=== PATIENT | male | born 1935 | race Caucasian/White ===

== ENCOUNTER → 2022-01-16 | Outpatient (CLI) | payer MEDICARE | END | disposition home or self-care (01) | LOC: RAH 15:03 | PROVIDERS: ATTEND Nurse Practitioner Adult Health | DX: E11.9 Type 2 diabetes mellitus without complications (principal); I25.10 Atherosclerotic heart disease of native coronary artery without angina pectoris | CPT/HCPCS: 93922 ==

== ENCOUNTER 2024-02-08 17:27 | Inpatient (IN) | payer MEDICARE ==
[~2024-02-08] VITALS: Ht 182.9 cm; Wt 80.8 kg
[~2024-02-08 17:27] MED LIST: ATOR20TA65 PO; CLOP-31 PO; FURO40TA7 PO; INSU300I SQ; LATA2.5D14 OP; LEVO125C4 PO; LOSA50TA64 PO; METO-408 PO; NITR0.4T50 SL; REPA2TAB8 PO; SITA1TBM4 PO; WARF4TAB72 PO
[2024-02-08] MEDS ORDERED: acetaMINOPHEN 500 MG TABLET PO PRN (18:30)
[2024-02-08 18:56] LABS: BASOPHILS # (AUTO) 0.04 K/uL (0.00-0.20); BASOPHILS % (AUTO) 0.6 % (0.0-5.0); EOSINOPHILS # (AUTO) 0.02 K/uL (0.00-0.70); EOSINOPHILS % (AUTO) 0.3 % (0.0-8.0); HEMATOCRIT 30.1 % (42-54); IMMATURE GRANULOCYTE ABSOLUTE 0.05 K/uL (0-1); LYMPHOCYTES # (AUTO) 0.9 K/uL (1.0-4.8); LYMPHOCYTES % (AUTO) 12.6 % (21.0-51.0); MEAN CORPUSCULAR HGB CONC 32.9 g/dL (32.0-36.0); MEAN CORPUSCULAR VOLUME 94.4 fL (79-99); MONOCYTES # (AUTO) 1.2 K/uL (0.1-1.0); MONOCYTES % (AUTO) 16.6 % (3.0-13.0); NEUTROPHILS % (AUTO) 69.2 % (40.0-77.0); PLATELET COUNT (AUTO) 206 K/uL (130-400); RED BLOOD CELL COUNT(AUTO) 3.19 MIL/uL (4.50-6.20); RED CELL DISTRIBUTION WIDTH 14.9 % (11.0-15.5); WHITE BLOOD COUNT (AUTO) 7.3 K/uL (4.8-10.8)
[2024-02-08] MEDS ORDERED: NITROGLYCERIN 0.4 MG SL TAB SL PRN (19:00)
[2024-02-08 19:09] LABS: CREATININE 1.4 mg/dL (0.5-1.3); POTASSIUM 3.4 mmol/L (3.5-5.1)
[2024-02-08 19:17] LABS: HEMOGLOBIN A1C 8.6 % (4.0-6.0)
[2024-02-08 19:21] LABS: ALBUMIN 3.4 g/dL (3.5-5.0); BILIRUBIN,TOTAL 1.2 mg/dL (0.2-1.0); THYROID STIMULATING HORMONE 2.31 uIU/mL (0.36-3.74); TOTAL PROTEIN, SERUM 6.8 g/dL (6.0-8.3)
[2024-02-08] MEDS ORDERED: ALBUTEROL 0.083% 2.5 MG/3 ML INH IH PRN (19:30)
[2024-02-08] MEDS: ASPIRIN 81MG CHEW TAB PO ONE (19:33)
[2024-02-08] MEDS: CLOPIDOGREL 75MG TAB PO ONE (19:33)
[2024-02-08 19:34] LABS: B-TYPE NATRIURETIC PEPTIDE 2600 pg/mL (0-100)
[2024-02-08] MEDS ORDERED: POTASSIUM CHLORIDE 10% ELIXIR 20 MEQ/15 ML UDCUP PO PRN (20:30)
[2024-02-08] MEDS ORDERED: POTASSIUM CHLORIDE 20MEQ/100ML 100 ML IV PRN (20:30)
[2024-02-08] MEDS: INSULIN humuLIN R 100 UNIT/ML 3ML SQ SCH (21:10)
[2024-02-08] MEDS: RANOLAZINE 500 MG TAB.SR.12H PO SCH (21:10)
[2024-02-08] MEDS: APIXaban 5 MG TABLET PO SCH (21:11)
[2024-02-08] MEDS: furoSEMIDE 40MG VIAL IV ONE (21:12)
[2024-02-08] MEDS: FAMOTIDINE 20MG VIAL IV SCH (21:12)
[2024-02-08] MEDS: atorVAStatin 20 MG TABLET PO SCH (21:13)
[2024-02-08] MEDS: OSELTAMIVIR PHOSPHATE 75 MG CAP PO SCH (21:13)
[2024-02-08] MEDS: INSULIN GLARgine 100 UNITS/ML 10 ML VIAL SQ SCH (22:15)
[2024-02-09] VITALS (8 sets, daily range): BP systolic 112–138; BP diastolic 50–80; PULSE 60–69; RESP 17–24; TEMP 97.4–98.7; O2SAT 95–98
[2024-02-09] MEDS ORDERED: APIX5TAB PO (05:02)
[2024-02-09] MEDS ORDERED: SILD20TA14 PO (05:02)
[2024-02-09] MEDS ORDERED: SACU1TAB PO (05:02)
[2024-02-09] MEDS ORDERED: ASPI-449 PO (05:02)
[2024-02-09] MEDS: guaiFENesin-DM 200/20MG 10ML PO PRN (05:08)
[2024-02-09 05:50] LABS: BASOPHILS # (AUTO) 0.03 K/uL (0.00-0.20); BASOPHILS % (AUTO) 0.5 % (0.0-5.0); EOSINOPHILS # (AUTO) 0.14 K/uL (0.00-0.70); EOSINOPHILS % (AUTO) 2.2 % (0.0-8.0); HEMATOCRIT 28.8 % (42-54); IMMATURE GRANULOCYTE ABSOLUTE 0.02 K/uL (0-1); MEAN CORPUSCULAR HEMOGLOBIN 31.4 pg (27.0-33.0); MEAN CORPUSCULAR HGB CONC 32.6 g/dL (32.0-36.0); MEAN CORPUSCULAR VOLUME 96.3 fL (79-99); MONOCYTES # (AUTO) 1.1 K/uL (0.1-1.0); MONOCYTES % (AUTO) 16.4 % (3.0-13.0); NEUTROPHILS # (AUTO) 4.2 K/uL (1.8-7.7); NEUTROPHILS % (AUTO) 65.6 % (40.0-77.0); PLATELET COUNT (AUTO) 174 K/uL (130-400); RED BLOOD CELL COUNT(AUTO) 2.99 MIL/uL (4.50-6.20); WHITE BLOOD COUNT (AUTO) 6.4 K/uL (4.8-10.8)
[2024-02-09 06:10] LABS: CREATININE 1.2 mg/dL (0.5-1.3); MAGNESIUM 1.4 mg/dL (1.80-2.40); POTASSIUM 3.5 mmol/L (3.5-5.1)
[2024-02-09] MEDS: levoTHYROxine 125 MCG TABLET PO SCH (06:22)
[2024-02-09] MEDS: MAGNESIUM 2GM PREMIX 50ML 50 ML IV PRN (08:47)
[2024-02-09] MEDS: SACUBITRIL/VALSARTAN 1 EACH TABLET PO SCH (08:47)
[2024-02-09] MEDS: CLOPIDOGREL 75MG TAB PO SCH (08:48)
[2024-02-09] MEDS: ASPIRIN 81MG CHEW TAB PO SCH (08:48)
[2024-02-09] MEDS: KCL 20 MEQ ERTAB PO PRN (08:48)
[2024-02-09] MEDS: furoSEMIDE 40 MG TABLET PO SCH (08:48)
[2024-02-09] MEDS ORDERED: APIXaban 5 MG TABLET PO SCH (21:00)
[2024-02-09] MEDS ORDERED: atorVAStatin 20 MG TABLET PO SCH (21:00)
[2024-02-09] MEDS: BENZOCAINE/MENTH/CETYLPYRD CL 1 EACH LOZENGE MM PRN (21:36)
[2024-02-10] VITALS: BP 140/61; PULSE 61; RESP 20; TEMP 98.3
[2024-02-10 04:00] VITALS: BP 127/78; PULSE 58; RESP 20; TEMP 98.1
[2024-02-10 06:58] LABS: BASOPHILS # (AUTO) 0.03 K/uL (0.00-0.20); BASOPHILS % (AUTO) 0.6 % (0.0-5.0); EOSINOPHILS # (AUTO) 0.21 K/uL (0.00-0.70); EOSINOPHILS % (AUTO) 3.9 % (0.0-8.0); HEMATOCRIT 29.5 % (42-54); IMMATURE GRANULOCYTE ABSOLUTE 0.02 K/uL (0-1); LYMPHOCYTES % (AUTO) 18.9 % (21.0-51.0); MEAN CORPUSCULAR HEMOGLOBIN 32.1 pg (27.0-33.0); MEAN CORPUSCULAR HGB CONC 33.9 g/dL (32.0-36.0); MEAN CORPUSCULAR VOLUME 94.6 fL (79-99); MONOCYTES # (AUTO) 0.9 K/uL (0.1-1.0); MONOCYTES % (AUTO) 16.3 % (3.0-13.0); NEUTROPHILS # (AUTO) 3.3 K/uL (1.8-7.7); NEUTROPHILS % (AUTO) 59.9 % (40.0-77.0); PLATELET COUNT (AUTO) 203 K/uL (130-400); RED BLOOD CELL COUNT(AUTO) 3.12 MIL/uL (4.50-6.20); RED CELL DISTRIBUTION WIDTH 15.1 % (11.0-15.5); WHITE BLOOD COUNT (AUTO) 5.5 K/uL (4.8-10.8)
[2024-02-10 07:14] LABS: B-TYPE NATRIURETIC PEPTIDE 1130 pg/mL (0-100)
[2024-02-10 07:22] LABS: CREATININE 1.2 mg/dL (0.5-1.3); POTASSIUM 3.8 mmol/L (3.5-5.1); TOTAL PROTEIN, SERUM 6.2 g/dL (6.0-8.3)
[2024-02-10] MEDS ORDERED: NON-FORMULARY MEDICATION 1 EACH (Levothyroxine Sodium (Levothyroxine) 125 MCG) PO SCH (07:30)
[2024-02-10 08:00] VITALS: BP 131/70; PULSE 60; RESP 18; TEMP 98.8; O2SAT 96
[2024-02-10] MEDS ORDERED: ASPIRIN 81 MG EC TAB PO SCH (09:00)
[2024-02-10] MEDS ORDERED: CLOPIDOGREL 75MG TAB PO SCH (09:00)
[2024-02-10] MEDS: furoSEMIDE 40MG VIAL IV SCH (09:53)
[2024-02-10] MEDS ORDERED: OSEL75 PO (11:56)
[2024-02-10 12:00] VITALS: BP 130/60; PULSE 63; RESP 17; TEMP 97.8
== END 2024-02-10 12:30 | disposition home or self-care (01) | DRG 291 ==
LOC: EDH 17:27 → EDHIP 17:28 → 4BH 02-09 04:31
PROVIDERS: ADMIT Internal Medicine; ATTEND Internal Medicine
DX: I11.0 Hypertensive heart disease with heart failure (principal); I50.23 Acute on chronic systolic (congestive) heart failure; I48.20 Chronic atrial fibrillation, unspecified; J10.1 Influenza due to other identified influenza virus with other respiratory manifestations; J40 Bronchitis, not specified as acute or chronic; I08.3 Combined rheumatic disorders of mitral, aortic and tricuspid valves; I25.10 Atherosclerotic heart disease of native coronary artery without angina pectoris; E11.65 Type 2 diabetes mellitus with hyperglycemia; E03.9 Hypothyroidism, unspecified; D64.9 Anemia, unspecified; E78.5 Hyperlipidemia, unspecified; I70.0 Atherosclerosis of aorta; Z79.01 Long term (current) use of anticoagulants; Z98.61 Coronary angioplasty status; Z95.0 Presence of cardiac pacemaker; Z79.899 Other long term (current) drug therapy
CPT/HCPCS: 36415; 71045; 80048; 80053; 82948; 83036; 83605; 83735; 83880; 84145; 84443; 84484; 85025; 86140; 93005; 93306; G0378; J1815; J1940; J3475; J3490